=== PATIENT | male | born 1990 | race Caucasian/White ===

== ENCOUNTER 2017-10-10 16:46 | Emergency (ER) | payer BC ==
[2017-10-10 16:56] VITALS: BP 120/65
--- NOTE | 2017-10-10 17:38 | UC ---
Throat Pain/Nasal Servando HPI - HPI Summary HPI Summary: Patient presents with an unremarkable past medical history. Patient presents with complaints of two hour onset sore throat. He is able to eat, drink and handle his own secretion. He was exposed to his brother who has strep throat and they were sharing drinks over the holiday. He denies any chest, abdomen pain , nausea, vomiting or diarrhea. - History of Current Complaint Hx Obtained From: Patient Onset/Duration: Sudden Onset, Lasting Hours Severity: Mild Cough: Nonproductive Associated Signs & Symptoms: Positive: Dysphagia - Epiglottits Risk Factors Epiglottis Risk Factors: Negative <Taina Chow - Last Filed: 10/10/17 17:48> <Sandra Badillo - Last Filed: 10/10/17 18:06> - History of Current Complaint Chief Complaint: UCGeneralIllness Stated Complaint: THROAT COMPLAINT Time Seen by Provider: 10/10/17 17:17 - Allergies/Home Medications Allergies/Adverse Reactions: Allergies Allergy/AdvReac Type Severity Reaction Status Date / Time Amoxicillin Allergy Hives Verified 10/10/17 16:57 Home Medications: Home Medications Estradiol PATCH 0.1 MG/DAY* [Climara PATCH 0.1 MG/DAY*] 0.1 mg TRANSDERM WEEKLY 10/10/17 [History Confirmed 10/10/17] Spironolactone TAB* [Aldactone TAB 25 MG*] 25 mg PO DAILY 10/10/17 [History Confirmed 10/10/17] PMH/Surg Hx/FS Hx/Imm Hx Previously Healthy: Yes - Surgical History Surgical History: None - Social History Occupation: Employed Full-time Lives: Alone Alcohol Use: Occasionally Substance Use Type: Marijuana Smoking Status (MU): Never Smoked Tobacco <Taina Chow - Last Filed: 10/10/17 17:48> Review of Systems Constitutional: Negative Skin: Negative Eyes: Negative ENT: Sore Throat Respiratory: Negative Cardiovascular: Negative Gastrointestinal: Negative Genitourinary: Negative Motor: Negative Neurovascular: Negative Musculoskeletal: Negative Neurological: Negative Psychological: Negative Is Patient Immunocompromised?: No All Other Systems Reviewed And Are Negative: Yes <Taina Chow - Last Filed: 10/10/17 17:48> Physical Exam Triage Information Reviewed: Yes Appearance: Well-Appearing Vital Signs: Initial Vital Signs Temp 98.0 F 10/10/17 16:52 Pulse 105 10/10/17 16:52 Resp 20 10/10/17 16:52 BP 120/65 10/10/17 16:52 Pulse Ox 100 10/10/17 16:52 Vital Signs Reviewed: Yes Eye Exam: Normal ENT: Positive: Pharyngeal erythema Dental Exam: Normal Neck exam: Normal Neck: Positive: 1 Respiratory Exam: Normal Cardiovascular Exam: Normal Abdominal Exam: Normal Musculoskeletal Exam: Normal Neurological Exam: Normal Psychological Exam: Normal Skin Exam: Normal <Taina Chow - Last Filed: 10/10/17 17:48> Vital Signs: Initial Vital Signs Temp 98.0 F 10/10/17 16:52 Pulse 105 10/10/17 16:52 Resp 20 10/10/17 16:52 BP 120/65 10/10/17 16:52 Pulse Ox 100 10/10/17 16:52 <Sandra Badillo - Last Filed: 10/10/17 18:06> Throat Pain/Nasal Course/Dx - Course Course Of Treatment: Patient presents with complaints of sore throat, rapid strep was negative and the patient was treated conservatively for viral pharyngitis. I recommend that he rest, increase fluids, take tylenol and/or advil and monitor for symptom improvement and if for any reason his symtpoms do not improve as anticipated he was told to follow up with pcp. He verbalized understanding of and was in agreement with the discharge plan. - Differential Dx/Diagnosis Differential Diagnosis/HQI/PQRI: Pharyngitis Provider Diagnoses: pharyngitis <Taina Chow - Last Filed: 10/10/17 17:48> Discharge <Taina Chow - Last Filed: 10/10/17 17:48> <Sandra Badillo - Last Filed: 10/10/17 18:06> - Discharge Plan Condition: Stable Disposition: HOME Patient Education Materials: Pharyngitis (ED) Referrals: No Primary Care Phys,NOPCP [Primary Care Provider] - Attestation Statement User Type: Provider - I was available for consult. This patient was seen by the AMBER. The patient was not presented to, seen by, or examined by me. -Vineet <Sandra Badillo - Last Filed: 10/10/17 18:06>
== END 2017-10-10 17:45 | disposition home or self-care (01) ==
LOC: UCEAST 16:46
DX: J02.9 Acute pharyngitis, unspecified (principal); Z88.0 Allergy status to penicillin
CPT/HCPCS: 87651; 99201; G0463